=== PATIENT | female | born 1945 | race African-American/Black ===

== ENCOUNTER 2018-08-10 17:33 | Emergency (ER) | payer MEDICARE, BC ==
[~2018-08-10] VITALS: Ht 165.1 cm; Wt 86.2 kg
[~2018-08-10 17:33] MED LIST: ASPI81TA50 PO; MULT-658 PO; blood pressure PO; bp
[2018-08-10 18:33] VITALS: BP 192/86
--- NOTE | 2018-08-10 19:43 | PHYS DOC ---
Past Medical History Past Medical History: Hypertension Past Surgical History: Other Additional Past Surgical Histo: "uterus cleaned out" Alcohol Use: Rarely Drug Use: None Adult General Chief Complaint Chief Complaint: INSECT BITE HPI HPI Patient is a 73 year old AA female who presents to the emergency room with complaints of left leg sticking after being stung by some sort of insect while in her garage today. Patient states she is unsure of what bit or stung her. She applied some PRID to the area and a bandage and just wanted to make sure that it is okay. She denies any shortness of breath, difficulty breathing, wheezing, numbness, tingling, or swelling of the area. She also denies any pain at this time. Review of Systems Review of Systems Constitutional: Denies fever or chills [] Respiratory: Denies cough or shortness of breath [] Cardiovascular: No additional information not addressed in HPI [] Musculoskeletal: Denies joint pain [] Integument: See HPI Neurologic: Denies headache, focal weakness or sensory changes [] All other systems were reviewed and found to be within normal limits, except as documented in this note. Allergies Allergies Allergies Coded Allergies Type Severity Reaction Last Updated Verified No Known Drug Allergies 07/05/15 No Physical Exam Physical Exam Constitutional: Well developed, well nourished, no acute distress, non-toxic appearance. [] HENT: Normocephalic, atraumatic, bilateral external ears normal, nose normal. [] Eyes: PERRLA, conjunctiva normal, no discharge. [] Cardiovascular:Heart rate regular rhythm, no murmur [] Lungs & Thorax: Bilateral breath sounds clear to auscultation [] Skin: Warm, dry, mild erythema to mid left lateral lower leg consistent with local reaction to insect sting/bite, no warmth or tenderness on palpation Extremities: No tenderness, no cyanosis, no clubbing, ROM intact, no edema. [] Neurologic: Alert and oriented X 3, normal motor function, normal sensory function, no focal deficits noted. [] Psychologic: Affect normal, judgement normal, mood normal. [] Current Patient Data Vital Signs Vital Signs Date Time Temp Pulse Resp B/P (MAP) Pulse Ox O2 Delivery O2 Flow Rate FiO2 08/10/18 18:33 98.4 78 16 192/86 (121) 98 Room Air 98.4 EKG EKG [] Radiology/Procedures Radiology/Procedures [] Course & Med Decision Making Course & Med Decision Making Pertinent Labs and Imaging studies reviewed. (See chart for details) Dx: local reaction to insect sting Advised patient to apply benadryl cream or [id number] hydrocortisone cream as needed for itching. Follow up with PCP if symptoms persist. Return to the ER if the symptoms worsen. [] Dragon Disclaimer Dragon Disclaimer This electronic medical record was generated, in whole or in part, using a voice recognition dictation system. Departure Departure Impression: Primary Impression: Local reaction to insect sting Disposition: HOME, SELF-CARE Condition: STABLE Referrals: UNKNOWN PCP NAME (PCP) Patient Instructions: Insect Bite, [id number] Additional Instructions: Apply benadryl cream or [id number] hydrocortisone cream as needed for itching. Warm moist packs to area as needed for comfort. Follow up with PCP if symptoms persist. Return to the ER if the symptoms worsen. Problem Qualifiers Primary Impression: Local reaction to insect sting Encounter type: initial encounter Injury intent: accidental or unintentional Qualified Codes: T63.481A - Toxic effect of venom of other arthropod, accidental (unintentional), initial encounter EVETTE RICHARD [employer] Aug 10, 2018 19:43
== END 2018-08-10 19:53 | disposition home or self-care (01) ==
LOC: ER 17:33
DX: T63.481A Toxic effect of venom of other arthropod, accidental (unintentional), initial encounter (principal); I10 Essential (primary) hypertension; Y92.89 Other specified places as the place of occurrence of the external cause
CPT/HCPCS: 99281